=== PATIENT | female | born 1940 | race Caucasian/White ===

== ENCOUNTER 2022-06-22 19:44 | Inpatient (IN) | payer OTHER ==
[~2022-06-22] VITALS: Ht 157.5 cm; Wt 51.3 kg
[2022-06-22 19:44] VITALS: BP_SYST 111
[2022-06-22] MEDS ORDERED: NACL 0.9% 1,000 ML IV ONE (20:15)
[2022-06-22] MEDS ORDERED: ACETAMINOPHEN 650 MG SUPP.RECT RC ONE (20:30)
[2022-06-22 20:55] LABS: BASOPHILS % (AUTO) 0.2 % (0.0-2.0); EOSINOPHILS % (AUTO) 0.3 % (0.0-4.0); HEMATOCRIT 28.4 % (36-48); HEMOGLOBIN 9.2 g/dL (12.0-16.0); LYMPHOCYTES # (AUTO) 1.3 K/uL (1.0-5.5); LYMPHOCYTES % (AUTO) 9.1 % (20.5-51.5); MEAN CORPUSCULAR HEMOGLOBIN 25 pg (27-31); MEAN CORPUSCULAR HGB CONC 32 % (32-36); MEAN CORPUSCULAR VOLUME 79 fL (79.0-98.0); MONOCYTES # (AUTO) 0.7 K/uL (0.0-1.0); MONOCYTES % (AUTO) 4.8 % (1.7-9.3); NEUTROPHILS # (AUTO) 11.8 K/uL (1.8-7.7); NEUTROPHILS % (AUTO) 85.6 % (40.0-70.0); PLATELET COUNT (AUTO) 555 K/uL (130-430); RED BLOOD CELL COUNT(AUTO) 3.61 MIL/uL (4.2-6.2); RED CELL DISTRIBUTION WIDTH 16.8 % (9.0-15.0); WHITE BLOOD COUNT (AUTO) 13.7 K/uL (4.8-10.8)
[2022-06-22 21:00] LABS: ANION GAP 6 (5-15); CALCIUM 7.4 mg/dL (8.4-11.0); CHLORIDE 100 mmol/L (98-107); CREATININE 0.94 mg/dL (0.55-1.30); GLUCOSE 237 mg/dL (70-99); UREA NITROGEN, BLOOD 33 mg/dL (8-21)
[2022-06-22 21:06] LABS: ALANINE AMINOTRANSFERASE 50 U/L (12-78); ALBUMIN 1.4 g/dL (3.4-4.8); ASPARTATE AMINOTRANSFERASE 60 U/L (10-37); TOTAL BILIRUBIN 0.3 mg/dL (0.0-1.0)
[2022-06-22] MEDS ORDERED: NACL 0.9% 2,000 ML IV ONE (21:15)
[2022-06-22] MEDS ORDERED: PIPERACILLIN/TAZO 3.375 GM in NS 50 ML IV ONE (21:45)
[2022-06-22 22:04] LABS: BILIRUBIN,URINE NEGATIVE (NEGATIVE); BLOOD, URINE NEGATIVE (NEGATIVE); CLARITY/URINE CLEAR (CLEAR); COLOR,URINE YELLOW (YELLOW); GLUCOSE,URINE NEGATIVE (NEGATIVE); KETONES,URINE NEGATIVE (NEGATIVE); LEUKOCYTE ESTERASE ,URINE TRACE (NEGATIVE); NITRITE, URINE NEGATIVE (NEGATIVE); PROTEIN URINE TRACE (NEGATIVE); UROBILINOGEN,URINE 0.2 (0.2-1.0)
[2022-06-22 22:12] LABS: BACTERIA,URINE FEW /HPF (None Seen); MUCUS,URINE None Seen /LPF (None Seen); RBC,URINE NONE SEEN /HPF (0-3)
[2022-06-22] MEDS ORDERED: PIPERACILLIN/TAZOBACTAM 3.375 GM/VIAL (ZOSYN) IV ONE (23:35)
[2022-06-23] MEDS: D5/0.45 NS 1,000 ML IV SCH ×3 (03:15→12:45)
[2022-06-23] MEDS ORDERED: PIPERACILLIN/TAZO 3.375/DEX-IS 50 ML IV SCH (04:00)
[2022-06-23 04:15] VITALS: BP_SYST 99
[2022-06-23] MEDS ORDERED: PIPERACILLIN/TAZOBACTAM 3.375 GM/VIAL (ZOSYN) IV ONE (05:29)
[2022-06-23 09:30] VITALS: BP_SYST 103
[2022-06-23 11:33] VITALS: BP_SYST 92
[2022-06-23] MEDS ORDERED: DIATR MEGLU/DIATRIZ SOD 30 ML SOLUTION PO ONE (12:11)
[2022-06-23] MEDS ORDERED: ALBUMIN HUMAN 25% 200 ML IV ONE (14:00)
[2022-06-23] MEDS: PIPERACILLIN/TAZO 3.375/DEX-IS 50 ML IV SCH ×2 (14:09→21:41)
[2022-06-23 15:51] VITALS: BP_SYST 102
[2022-06-23 20:10] VITALS: BP_SYST 112
[2022-06-24 00:23] VITALS: BP_SYST 120
[2022-06-24] MEDS: D5/0.45 NS 1,000 ML IV SCH ×2 (03:16→08:45)
[2022-06-24 06:13] LABS: BASOPHILS % (AUTO) 0.3 % (0.0-2.0); EOSINOPHILS # (AUTO) 0.1 K/uL (0.0-0.4); EOSINOPHILS % (AUTO) 1.1 % (0.0-4.0); HEMATOCRIT 24.7 % (36-48); HEMOGLOBIN 7.8 g/dL (12.0-16.0); LYMPHOCYTES # (AUTO) 1.8 K/uL (1.0-5.5); LYMPHOCYTES % (AUTO) 13.6 % (20.5-51.5); MEAN CORPUSCULAR HEMOGLOBIN 25 pg (27-31); MEAN CORPUSCULAR HGB CONC 31 % (32-36); MEAN CORPUSCULAR VOLUME 81 fL (79.0-98.0); MONOCYTES # (AUTO) 0.7 K/uL (0.0-1.0); MONOCYTES % (AUTO) 5.7 % (1.7-9.3); NEUTROPHILS # (AUTO) 10.2 K/uL (1.8-7.7); NEUTROPHILS % (AUTO) 79.3 % (40.0-70.0); PLATELET COUNT (AUTO) 547 K/uL (130-430); RED BLOOD CELL COUNT(AUTO) 3.06 MIL/uL (4.2-6.2); RED CELL DISTRIBUTION WIDTH 16.8 % (9.0-15.0); WHITE BLOOD COUNT (AUTO) 12.9 K/uL (4.8-10.8)
[2022-06-24] MEDS: PIPERACILLIN/TAZO 3.375/DEX-IS 50 ML IV SCH ×3 (06:16→22:21)
[2022-06-24 06:52] LABS: ANION GAP 8 (5-15); CALCIUM 7.8 mg/dL (8.4-11.0); CHLORIDE 107 mmol/L (98-107); GLUCOSE 128 mg/dL (70-99); UREA NITROGEN, BLOOD 16 mg/dL (8-21)
[2022-06-24 08:00] VITALS: BP_SYST 114
[2022-06-24 11:31] VITALS: BP_SYST 124
[2022-06-24 15:35] VITALS: BP_SYST 128
[2022-06-24 16:02] LABS: BASOPHILS % (AUTO) 0.3 % (0.0-2.0); EOSINOPHILS # (AUTO) 0.1 K/uL (0.0-0.4); EOSINOPHILS % (AUTO) 0.5 % (0.0-4.0); HEMATOCRIT 23.9 % (36-48); HEMOGLOBIN 7.7 g/dL (12.0-16.0); LYMPHOCYTES # (AUTO) 2.2 K/uL (1.0-5.5); MEAN CORPUSCULAR HEMOGLOBIN 26 pg (27-31); MEAN CORPUSCULAR HGB CONC 32 % (32-36); MEAN CORPUSCULAR VOLUME 80 fL (79.0-98.0); MONOCYTES # (AUTO) 0.9 K/uL (0.0-1.0); MONOCYTES % (AUTO) 6.7 % (1.7-9.3); NEUTROPHILS # (AUTO) 10.4 K/uL (1.8-7.7); NEUTROPHILS % (AUTO) 76.5 % (40.0-70.0); PLATELET COUNT (AUTO) 559 K/uL (130-430); RED BLOOD CELL COUNT(AUTO) 2.99 MIL/uL (4.2-6.2); RED CELL DISTRIBUTION WIDTH 16.9 % (9.0-15.0); WHITE BLOOD COUNT (AUTO) 13.6 K/uL (4.8-10.8)
[2022-06-24 20:00] VITALS: BP_SYST 144
[2022-06-25 00:13] VITALS: BP_SYST 140
[2022-06-25] MEDS: D5/0.45 NS 1,000 ML IV SCH (03:07)
[2022-06-25] MEDS: PIPERACILLIN/TAZO 3.375/DEX-IS 50 ML IV SCH ×2 (05:29→15:04)
[2022-06-25 07:00] LABS: BASOPHILS % (AUTO) 0.2 % (0.0-2.0); EOSINOPHILS # (AUTO) 0.1 K/uL (0.0-0.4); EOSINOPHILS % (AUTO) 0.8 % (0.0-4.0); HEMATOCRIT 27.6 % (36-48); HEMOGLOBIN 8.8 g/dL (12.0-16.0); LYMPHOCYTES # (AUTO) 2.1 K/uL (1.0-5.5); MEAN CORPUSCULAR HEMOGLOBIN 26 pg (27-31); MEAN CORPUSCULAR HGB CONC 32 % (32-36); MEAN CORPUSCULAR VOLUME 80 fL (79.0-98.0); MONOCYTES # (AUTO) 0.7 K/uL (0.0-1.0); MONOCYTES % (AUTO) 5.4 % (1.7-9.3); NEUTROPHILS # (AUTO) 10.7 K/uL (1.8-7.7); NEUTROPHILS % (AUTO) 78.6 % (40.0-70.0); PLATELET COUNT (AUTO) 621 K/uL (130-430); RED BLOOD CELL COUNT(AUTO) 3.44 MIL/uL (4.2-6.2); RED CELL DISTRIBUTION WIDTH 16.6 % (9.0-15.0); WHITE BLOOD COUNT (AUTO) 13.7 K/uL (4.8-10.8)
[2022-06-25 07:15] LABS: ANION GAP 7 (5-15); CALCIUM 8.2 mg/dL (8.4-11.0); CHLORIDE 105 mmol/L (98-107); GLUCOSE 111 mg/dL (70-99); UREA NITROGEN, BLOOD 11 mg/dL (8-21)
[2022-06-25 08:00] VITALS: BP_SYST 126
[2022-06-25 08:25] LABS: INR 1.2 (0.8-1.2); PROTHROMBIN TIME 12.6 SECS (9.5-12.5)
[2022-06-25] MEDS: BALSAM PERU/CASTOR OIL 56.7 GM OINT...G. TP SCH (09:11)
[2022-06-25] MEDS ORDERED: POTASSIUM CHLORIDE 40 MEQ, LIDOCAINE JECT 2% PF 100 MG 50 MG in NS 250 ML IV ONE (09:15)
[2022-06-25 11:25] VITALS: BP_SYST 108
[2022-06-25] MEDS ORDERED: CARVEDILOL 3.125 MG TABLET (COREG) PO ONE (14:30)
[2022-06-25 15:26] VITALS: BP_SYST 107
[2022-06-25 20:10] VITALS: BP_SYST 123
[2022-06-25] MEDS: CARVEDILOL 3.125 MG TABLET (COREG) PO SCH (21:00)
[2022-06-26 01:19] VITALS: BP_SYST 145
[2022-06-26] MEDS: D5/0.45 NS 1,000 ML IV SCH ×3 (02:22→21:17)
[2022-06-26 05:20] LABS: BASOPHILS % (AUTO) 0.2 % (0.0-2.0); EOSINOPHILS % (AUTO) 0.2 % (0.0-4.0); HEMATOCRIT 29.8 % (36-48); HEMOGLOBIN 9.4 g/dL (12.0-16.0); LYMPHOCYTES # (AUTO) 2.4 K/uL (1.0-5.5); LYMPHOCYTES % (AUTO) 16.1 % (20.5-51.5); MEAN CORPUSCULAR HEMOGLOBIN 25 pg (27-31); MEAN CORPUSCULAR HGB CONC 32 % (32-36); MEAN CORPUSCULAR VOLUME 81 fL (79.0-98.0); MONOCYTES # (AUTO) 0.7 K/uL (0.0-1.0); MONOCYTES % (AUTO) 5.1 % (1.7-9.3); NEUTROPHILS # (AUTO) 11.6 K/uL (1.8-7.7); NEUTROPHILS % (AUTO) 78.4 % (40.0-70.0); PLATELET COUNT (AUTO) 691 K/uL (130-430); RED CELL DISTRIBUTION WIDTH 16.8 % (9.0-15.0); WHITE BLOOD COUNT (AUTO) 14.8 K/uL (4.8-10.8)
[2022-06-26 05:34] LABS: ANION GAP 11 (5-15); CALCIUM 7.5 mg/dL (8.4-11.0); CHLORIDE 103 mmol/L (98-107); CREATININE 0.61 mg/dL (0.55-1.30); GLUCOSE 131 mg/dL (70-99); UREA NITROGEN, BLOOD 9 mg/dL (8-21)
[2022-06-26] MEDS: PIPERACILLIN/TAZO 3.375/DEX-IS 50 ML IV SCH ×3 (05:51→21:16)
[2022-06-26] MEDS ORDERED: MAGNESIUM SULFATE 50 ML IV ONE (07:00)
[2022-06-26 07:53] VITALS: BP_SYST 126
[2022-06-26] MEDS ORDERED: POTASSIUM CHLORIDE 40 MEQ in NS 250 ML IV ONE (08:00)
[2022-06-26] MEDS: BALSAM PERU/CASTOR OIL 56.7 GM OINT...G. TP SCH (08:44)
[2022-06-26] MEDS: FLUCONAZOLE 200 mg/ NS 100 ML IV SCH (11:07)
[2022-06-26 11:33] VITALS: BP_SYST 130
[2022-06-26] MEDS: CARVEDILOL 3.125 MG TABLET (COREG) PO SCH ×2 (14:39→21:18)
[2022-06-26 15:39] VITALS: BP_SYST 143
[2022-06-27] VITALS (7 sets, daily range): BP systolic 118–151
[2022-06-27 05:34] LABS: BASOPHILS % (AUTO) 0.2 % (0.0-2.0); EOSINOPHILS # (AUTO) 0.3 K/uL (0.0-0.4); EOSINOPHILS % (AUTO) 2.2 % (0.0-4.0); HEMATOCRIT 27.3 % (36-48); HEMOGLOBIN 8.7 g/dL (12.0-16.0); LYMPHOCYTES # (AUTO) 1.8 K/uL (1.0-5.5); LYMPHOCYTES % (AUTO) 15.2 % (20.5-51.5); MEAN CORPUSCULAR HEMOGLOBIN 25 pg (27-31); MEAN CORPUSCULAR HGB CONC 32 % (32-36); MEAN CORPUSCULAR VOLUME 79 fL (79.0-98.0); MONOCYTES # (AUTO) 0.6 K/uL (0.0-1.0); MONOCYTES % (AUTO) 4.9 % (1.7-9.3); NEUTROPHILS # (AUTO) 9.2 K/uL (1.8-7.7); NEUTROPHILS % (AUTO) 77.5 % (40.0-70.0); PLATELET COUNT (AUTO) 656 K/uL (130-430); RED BLOOD CELL COUNT(AUTO) 3.44 MIL/uL (4.2-6.2); RED CELL DISTRIBUTION WIDTH 16.7 % (9.0-15.0); WHITE BLOOD COUNT (AUTO) 11.9 K/uL (4.8-10.8)
[2022-06-27 06:23] LABS: ANION GAP 9 (5-15); CALCIUM 7.3 mg/dL (8.4-11.0); CHLORIDE 104 mmol/L (98-107); CREATININE 0.55 mg/dL (0.55-1.30); GLUCOSE 133 mg/dL (70-99); UREA NITROGEN, BLOOD 7 mg/dL (8-21)
[2022-06-27] MEDS: PIPERACILLIN/TAZO 3.375/DEX-IS 50 ML IV SCH ×3 (06:31→21:59)
[2022-06-27] MEDS: D5/0.45 NS 1,000 ML IV SCH ×2 (06:31→16:45)
[2022-06-27] MEDS: CARVEDILOL 3.125 MG TABLET (COREG) PO SCH ×2 (09:00→21:57)
[2022-06-27] MEDS ORDERED: POTASSIUM CHLORIDE 40 MEQ in NS 250 ML IV ONE (11:00)
[2022-06-27] MEDS: FLUCONAZOLE 200 mg/ NS 100 ML IV SCH (11:31)
[2022-06-27] MEDS: BALSAM PERU/CASTOR OIL 56.7 GM OINT...G. TP SCH (11:31)
[2022-06-27] MEDS ORDERED: fentaNYL CITRATE/PF 100 MCG/2 ML AMP IVP PRN ×2 (15:45)
[2022-06-27] MEDS ORDERED: ONDANSETRON HCL 4 MG/2 ML VIAL IVP PRN (15:45)
[2022-06-27] MEDS ORDERED: METOCLOPRAMIDE HCL 10 MG/2 ML VIAL IVP PRN (15:45)
[2022-06-27] MEDS ORDERED: LR 1,000 ML IV.SOLN IV ONE (16:15)
[2022-06-27] MEDS ORDERED: BUPIVACAINE /PF 0.75% 10 ML VIAL INJ ONE (16:15)
[2022-06-27] MEDS ORDERED: NS IRRIG SOLN 1000 ML IR ONE (16:15)
[2022-06-27] MEDS ORDERED: HYDROcodone/ACETAMIN 5-325 MG TAB (NORCO/ VICODIN) PO PRN (19:00)
[2022-06-28] VITALS (7 sets, daily range): BP systolic 99–168
[2022-06-28] MEDS: D5/0.45 NS 1,000 ML IV SCH ×3 (02:01→22:45)
[2022-06-28] MEDS: PIPERACILLIN/TAZO 3.375/DEX-IS 50 ML IV SCH (06:46)
[2022-06-28 09:22] LABS: BASOPHILS # (AUTO) 0.1 K/uL (0.0-0.2); BASOPHILS % (AUTO) 0.4 % (0.0-2.0); EOSINOPHILS # (AUTO) 0.3 K/uL (0.0-0.4); EOSINOPHILS % (AUTO) 1.8 % (0.0-4.0); HEMATOCRIT 28.7 % (36-48); HEMOGLOBIN 9.1 g/dL (12.0-16.0); LYMPHOCYTES # (AUTO) 2.6 K/uL (1.0-5.5); LYMPHOCYTES % (AUTO) 17.6 % (20.5-51.5); MEAN CORPUSCULAR HEMOGLOBIN 25 pg (27-31); MEAN CORPUSCULAR HGB CONC 32 % (32-36); MEAN CORPUSCULAR VOLUME 80 fL (79.0-98.0); MONOCYTES # (AUTO) 0.7 K/uL (0.0-1.0); NEUTROPHILS % (AUTO) 75.2 % (40.0-70.0); PLATELET COUNT (AUTO) 663 K/uL (130-430); RED BLOOD CELL COUNT(AUTO) 3.58 MIL/uL (4.2-6.2); RED CELL DISTRIBUTION WIDTH 16.8 % (9.0-15.0); WHITE BLOOD COUNT (AUTO) 14.6 K/uL (4.8-10.8)
[2022-06-28] MEDS: CARVEDILOL 3.125 MG TABLET (COREG) PO SCH ×2 (09:24→21:41)
[2022-06-28] MEDS: BALSAM PERU/CASTOR OIL 56.7 GM OINT...G. TP SCH (09:28)
[2022-06-28 09:36] LABS: ANION GAP 8 (5-15); CALCIUM 7.5 mg/dL (8.4-11.0); CHLORIDE 101 mmol/L (98-107); CREATININE 0.53 mg/dL (0.55-1.30); GLUCOSE 113 mg/dL (70-99); UREA NITROGEN, BLOOD 7 mg/dL (8-21)
[2022-06-28] MEDS: FLUCONAZOLE 200 mg/ NS 100 ML IV SCH (10:08)
[2022-06-28] MEDS: AMPICILLIN SODIUM/SULBACTAM NA 1.5 GM in NS 50 ML IV SCH ×2 (15:25→17:13)
[2022-06-29] MEDS: AMPICILLIN SODIUM/SULBACTAM NA 1.5 GM in NS 50 ML IV SCH ×5 (00:09→23:58)
[2022-06-29 01:25] VITALS: BP_SYST 152
[2022-06-29 07:36] LABS: BASOPHILS # (AUTO) 0.1 K/uL (0.0-0.2); BASOPHILS % (AUTO) 0.4 % (0.0-2.0); EOSINOPHILS # (AUTO) 0.2 K/uL (0.0-0.4); EOSINOPHILS % (AUTO) 1.7 % (0.0-4.0); HEMATOCRIT 25.2 % (36-48); LYMPHOCYTES # (AUTO) 2.5 K/uL (1.0-5.5); LYMPHOCYTES % (AUTO) 19.4 % (20.5-51.5); MEAN CORPUSCULAR HEMOGLOBIN 25 pg (27-31); MEAN CORPUSCULAR HGB CONC 32 % (32-36); MEAN CORPUSCULAR VOLUME 79 fL (79.0-98.0); MONOCYTES # (AUTO) 0.7 K/uL (0.0-1.0); MONOCYTES % (AUTO) 5.4 % (1.7-9.3); NEUTROPHILS # (AUTO) 9.4 K/uL (1.8-7.7); NEUTROPHILS % (AUTO) 73.1 % (40.0-70.0); PLATELET COUNT (AUTO) 659 K/uL (130-430); RED BLOOD CELL COUNT(AUTO) 3.18 MIL/uL (4.2-6.2); RED CELL DISTRIBUTION WIDTH 16.4 % (9.0-15.0); WHITE BLOOD COUNT (AUTO) 12.9 K/uL (4.8-10.8)
[2022-06-29 07:40] VITALS: BP_SYST 125
[2022-06-29 07:42] LABS: ANION GAP 7 (5-15); C-REACTIVE PROTEIN QUANT 11.2 mg/dL (0-0.5); CALCIUM 7.3 mg/dL (8.4-11.0); CHLORIDE 102 mmol/L (98-107); CREATININE 0.47 mg/dL (0.55-1.30); GLUCOSE 107 mg/dL (70-99); UREA NITROGEN, BLOOD 6 mg/dL (8-21)
[2022-06-29] MEDS: D5/0.45 NS 1,000 ML IV SCH (08:18)
[2022-06-29] MEDS: CARVEDILOL 3.125 MG TABLET (COREG) PO SCH ×2 (08:19→20:31)
[2022-06-29] MEDS: BALSAM PERU/CASTOR OIL 56.7 GM OINT...G. TP SCH (08:20)
[2022-06-29 08:42] LABS: ERYTHROCYTE SEDIMENTATION RATE 38 MM/HR (0-20)
[2022-06-29] MEDS ORDERED: POTASSIUM CHLORIDE 20 MEQ TAB.PRT.SR PO ONE (11:45)
[2022-06-29] MEDS: FLUCONAZOLE 200 mg/ NS 100 ML IV SCH (12:17)
[2022-06-29 12:29] VITALS: BP_SYST 137
[2022-06-29] MEDS: NORMAL SALINE 5 ML DISP.SYRIN IVF SCH ×2 (13:17→23:58)
[2022-06-29 16:39] VITALS: BP_SYST 128
[2022-06-29 20:00] VITALS: BP_SYST 132
[2022-06-30] VITALS: BP_SYST 140
[2022-06-30] MEDS: NORMAL SALINE 5 ML DISP.SYRIN IVF SCH ×3 (06:04→21:30)
[2022-06-30] MEDS: AMPICILLIN SODIUM/SULBACTAM NA 1.5 GM in NS 50 ML IV SCH ×4 (06:04→23:38)
[2022-06-30 07:34] LABS: BASOPHILS % (AUTO) 0.4 % (0.0-2.0); EOSINOPHILS # (AUTO) 0.1 K/uL (0.0-0.4); EOSINOPHILS % (AUTO) 1.2 % (0.0-4.0); HEMATOCRIT 24.7 % (36-48); LYMPHOCYTES # (AUTO) 2.3 K/uL (1.0-5.5); MEAN CORPUSCULAR HEMOGLOBIN 26 pg (27-31); MEAN CORPUSCULAR HGB CONC 32 % (32-36); MEAN CORPUSCULAR VOLUME 80 fL (79.0-98.0); MONOCYTES # (AUTO) 0.7 K/uL (0.0-1.0); MONOCYTES % (AUTO) 6.2 % (1.7-9.3); NEUTROPHILS # (AUTO) 7.7 K/uL (1.8-7.7); NEUTROPHILS % (AUTO) 71.2 % (40.0-70.0); PLATELET COUNT (AUTO) 592 K/uL (130-430); RED BLOOD CELL COUNT(AUTO) 3.09 MIL/uL (4.2-6.2); RED CELL DISTRIBUTION WIDTH 17.1 % (9.0-15.0); WHITE BLOOD COUNT (AUTO) 10.8 K/uL (4.8-10.8)
[2022-06-30 07:45] LABS: ERYTHROCYTE SEDIMENTATION RATE 40 MM/HR (0-20)
[2022-06-30 08:05] LABS: ALANINE AMINOTRANSFERASE 14 U/L (12-78); ALBUMIN 1.6 g/dL (3.4-4.8); ANION GAP 7 (5-15); ASPARTATE AMINOTRANSFERASE 14 U/L (10-37); CALCIUM 7.4 mg/dL (8.4-11.0); CHLORIDE 103 mmol/L (98-107); GLUCOSE 95 mg/dL (70-99); TOTAL BILIRUBIN 0.3 mg/dL (0.0-1.0); UREA NITROGEN, BLOOD 8 mg/dL (8-21)
[2022-06-30] MEDS: CARVEDILOL 3.125 MG TABLET (COREG) PO SCH ×2 (08:51→21:29)
[2022-06-30] MEDS: BALSAM PERU/CASTOR OIL 56.7 GM OINT...G. TP SCH (08:52)
[2022-06-30] MEDS: FLUCONAZOLE 200 mg/ NS 100 ML IV SCH (11:26)
[2022-06-30 11:32] VITALS: BP_SYST 128
[2022-06-30 14:47] LABS: INR 1.1 (0.8-1.2); PROTHROMBIN TIME 11.5 SECS (9.5-12.5)
[2022-06-30 18:32] VITALS: BP_SYST 123
[2022-06-30 20:00] VITALS: BP_SYST 163
[2022-06-30] MEDS: ENOXAPARIN SODIUM 60 MG/0.6 ML SYRINGE SUBCUT SCH (21:29)
[2022-07-01] VITALS: BP_SYST 149
[2022-07-01] MEDS: AMPICILLIN SODIUM/SULBACTAM NA 1.5 GM in NS 50 ML IV SCH ×4 (05:25→23:27)
[2022-07-01] MEDS: NORMAL SALINE 5 ML DISP.SYRIN IVF SCH ×3 (05:26→21:32)
[2022-07-01 08:20] VITALS: BP_SYST 145
[2022-07-01] MEDS: CARVEDILOL 3.125 MG TABLET (COREG) PO SCH ×2 (09:20→21:32)
[2022-07-01] MEDS: ENOXAPARIN SODIUM 60 MG/0.6 ML SYRINGE SUBCUT SCH ×2 (09:20→21:32)
[2022-07-01] MEDS: BALSAM PERU/CASTOR OIL 56.7 GM OINT...G. TP SCH (09:23)
[2022-07-01] MEDS: FLUCONAZOLE 200 mg/ NS 100 ML IV SCH (10:22)
[2022-07-01 11:27] VITALS: BP_SYST 134
[2022-07-01] MEDS ORDERED: DIF100 PO (15:03)
[2022-07-01] MEDS ORDERED: [UNRECOGNIZED DRUG - CODE] INJ (15:05)
[2022-07-01 15:35] VITALS: BP_SYST 101
[2022-07-01 20:00] VITALS: BP_SYST 119
[2022-07-02 01:18] VITALS: BP_SYST 101
[2022-07-02] MEDS: AMPICILLIN SODIUM/SULBACTAM NA 1.5 GM in NS 50 ML IV SCH ×4 (05:32→23:25)
[2022-07-02] MEDS: NORMAL SALINE 5 ML DISP.SYRIN IVF SCH ×3 (05:32→23:25)
[2022-07-02 08:00] VITALS: BP_SYST 148
[2022-07-02] MEDS: ENOXAPARIN SODIUM 60 MG/0.6 ML SYRINGE SUBCUT SCH ×2 (10:12→21:54)
[2022-07-02] MEDS: CARVEDILOL 3.125 MG TABLET (COREG) PO SCH ×2 (10:12→21:55)
[2022-07-02] MEDS: FLUCONAZOLE 200 mg/ NS 100 ML IV SCH (10:14)
[2022-07-02] MEDS: BALSAM PERU/CASTOR OIL 56.7 GM OINT...G. TP SCH (10:15)
[2022-07-02 11:27] VITALS: BP_SYST 117
[2022-07-02 15:38] VITALS: BP_SYST 115
[2022-07-02 16:00] VITALS: BP_SYST 115
[2022-07-02 20:00] VITALS: BP_SYST 115
[2022-07-03 01:15] VITALS: BP_SYST 130
[2022-07-03 04:51] VITALS: BP_SYST 118
[2022-07-03] MEDS: AMPICILLIN SODIUM/SULBACTAM NA 1.5 GM in NS 50 ML IV SCH ×4 (05:40→23:48)
[2022-07-03] MEDS: NORMAL SALINE 5 ML DISP.SYRIN IVF SCH ×3 (05:41→20:56)
[2022-07-03 08:21] VITALS: BP_SYST 106
[2022-07-03] MEDS: ENOXAPARIN SODIUM 60 MG/0.6 ML SYRINGE SUBCUT SCH ×2 (09:26→20:55)
[2022-07-03] MEDS: CARVEDILOL 3.125 MG TABLET (COREG) PO SCH ×2 (09:27→20:55)
[2022-07-03] MEDS: BALSAM PERU/CASTOR OIL 56.7 GM OINT...G. TP SCH (09:28)
[2022-07-03 11:24] VITALS: BP_SYST 119
[2022-07-03] MEDS: FLUCONAZOLE 200 mg/ NS 100 ML IV SCH (11:31)
[2022-07-03 15:16] VITALS: BP_SYST 131
[2022-07-03 20:30] VITALS: BP_SYST 137
[2022-07-03] MEDS: metroNIDAZOLE 500 MG TABLET PO SCH (20:56)
[2022-07-04 00:55] VITALS: BP_SYST 108
[2022-07-04] MEDS: AMPICILLIN SODIUM/SULBACTAM NA 1.5 GM in NS 50 ML IV SCH ×4 (06:24→23:18)
[2022-07-04] MEDS: NORMAL SALINE 5 ML DISP.SYRIN IVF SCH ×3 (06:24→23:19)
[2022-07-04 08:06] VITALS: BP_SYST 135
[2022-07-04] MEDS: CARVEDILOL 3.125 MG TABLET (COREG) PO SCH ×2 (09:19→20:20)
[2022-07-04] MEDS: ENOXAPARIN SODIUM 60 MG/0.6 ML SYRINGE SUBCUT SCH ×2 (09:20→20:22)
[2022-07-04] MEDS: metroNIDAZOLE 500 MG TABLET PO SCH ×2 (09:20→20:20)
[2022-07-04] MEDS: BALSAM PERU/CASTOR OIL 56.7 GM OINT...G. TP SCH (09:20)
[2022-07-04] MEDS: FLUCONAZOLE 200 mg/ NS 100 ML IV SCH (10:31)
[2022-07-04 11:30] VITALS: BP_SYST 119
[2022-07-04 15:17] VITALS: BP_SYST 109
[2022-07-04 19:55] VITALS: BP_SYST 138
[2022-07-04] MEDS: QUEtiapine FUMARATE 25 MG TABLET PO SCH (20:22)
[2022-07-05 00:21] VITALS: BP_SYST 111
[2022-07-05] MEDS: AMPICILLIN SODIUM/SULBACTAM NA 1.5 GM in NS 50 ML IV SCH ×3 (05:14→17:20)
[2022-07-05] MEDS: NORMAL SALINE 5 ML DISP.SYRIN IVF SCH ×2 (05:15→11:56)
[2022-07-05 08:00] VITALS: BP_SYST 91
[2022-07-05] MEDS: metroNIDAZOLE 500 MG TABLET PO SCH ×2 (08:39→21:27)
[2022-07-05] MEDS: ENOXAPARIN SODIUM 60 MG/0.6 ML SYRINGE SUBCUT SCH ×2 (08:39→21:28)
[2022-07-05] MEDS: BALSAM PERU/CASTOR OIL 56.7 GM OINT...G. TP SCH (08:40)
[2022-07-05] MEDS: CARVEDILOL 3.125 MG TABLET (COREG) PO SCH ×2 (09:00→21:27)
[2022-07-05] MEDS: FLUCONAZOLE 200 mg/ NS 100 ML IV SCH (11:17)
[2022-07-05 11:45] VITALS: BP_SYST 121
[2022-07-05 16:31] VITALS: BP_SYST 99
[2022-07-05 20:00] VITALS: BP_SYST 115
[2022-07-05] MEDS: QUEtiapine FUMARATE 25 MG TABLET PO SCH (21:27)
[2022-07-06] MEDS: AMPICILLIN SODIUM/SULBACTAM NA 1.5 GM in NS 50 ML IV SCH ×4 (00:02→18:32)
[2022-07-06] MEDS: NORMAL SALINE 5 ML DISP.SYRIN IVF SCH ×4 (00:04→22:24)
[2022-07-06 00:59] VITALS: BP_SYST 129
[2022-07-06 06:56] LABS: BASOPHILS # (AUTO) 0.1 K/uL (0.0-0.2); BASOPHILS % (AUTO) 0.7 % (0.0-2.0); EOSINOPHILS % (AUTO) 0.6 % (0.0-4.0); HEMATOCRIT 22.9 % (36-48); HEMOGLOBIN 7.3 g/dL (12.0-16.0); LYMPHOCYTES % (AUTO) 26.2 % (20.5-51.5); MEAN CORPUSCULAR HEMOGLOBIN 25 pg (27-31); MEAN CORPUSCULAR HGB CONC 32 % (32-36); MEAN CORPUSCULAR VOLUME 80 fL (79.0-98.0); MONOCYTES # (AUTO) 0.6 K/uL (0.0-1.0); NEUTROPHILS # (AUTO) 4.8 K/uL (1.8-7.7); NEUTROPHILS % (AUTO) 64.5 % (40.0-70.0); PLATELET COUNT (AUTO) 534 K/uL (130-430); RED BLOOD CELL COUNT(AUTO) 2.87 MIL/uL (4.2-6.2); RED CELL DISTRIBUTION WIDTH 18.1 % (9.0-15.0); WHITE BLOOD COUNT (AUTO) 7.4 K/uL (4.8-10.8)
[2022-07-06 07:19] LABS: ANION GAP 7 (5-15); CALCIUM 7.5 mg/dL (8.4-11.0); CHLORIDE 104 mmol/L (98-107); GLUCOSE 113 mg/dL (70-99); UREA NITROGEN, BLOOD 11 mg/dL (8-21)
[2022-07-06 07:27] LABS: ERYTHROCYTE SEDIMENTATION RATE 55 MM/HR (0-20)
[2022-07-06 08:00] VITALS: BP_SYST 121
[2022-07-06] MEDS: CARVEDILOL 3.125 MG TABLET (COREG) PO SCH ×2 (08:39→20:54)
[2022-07-06] MEDS: ENOXAPARIN SODIUM 60 MG/0.6 ML SYRINGE SUBCUT SCH ×2 (08:40→20:55)
[2022-07-06] MEDS: metroNIDAZOLE 500 MG TABLET PO SCH ×2 (08:40→20:54)
[2022-07-06] MEDS: BALSAM PERU/CASTOR OIL 56.7 GM OINT...G. TP SCH (08:46)
[2022-07-06] MEDS ORDERED: POTASSIUM CHLORIDE 20 MEQ TAB.PRT.SR PO ONE (11:30)
[2022-07-06 11:39] VITALS: BP_SYST 124
[2022-07-06] MEDS: FLUCONAZOLE 200 mg/ NS 100 ML IV SCH (12:02)
[2022-07-06 16:00] VITALS: BP_SYST 117
[2022-07-06 20:00] VITALS: BP_SYST 139
[2022-07-06] MEDS: QUEtiapine FUMARATE 25 MG TABLET PO SCH (20:54)
[2022-07-07] MEDS: AMPICILLIN SODIUM/SULBACTAM NA 1.5 GM in NS 50 ML IV SCH ×4 (00:24→18:00)
[2022-07-07 00:56] VITALS: BP_SYST 124
[2022-07-07] MEDS: NORMAL SALINE 5 ML DISP.SYRIN IVF SCH ×3 (05:27→22:18)
[2022-07-07 06:06] LABS: BASOPHILS # (AUTO) 0.1 K/uL (0.0-0.2); BASOPHILS % (AUTO) 0.8 % (0.0-2.0); EOSINOPHILS # (AUTO) 0.1 K/uL (0.0-0.4); LYMPHOCYTES # (AUTO) 2.5 K/uL (1.0-5.5); LYMPHOCYTES % (AUTO) 32.5 % (20.5-51.5); MEAN CORPUSCULAR HEMOGLOBIN 25 pg (27-31); MEAN CORPUSCULAR HGB CONC 32 % (32-36); MEAN CORPUSCULAR VOLUME 80 fL (79.0-98.0); MONOCYTES # (AUTO) 0.7 K/uL (0.0-1.0); MONOCYTES % (AUTO) 8.5 % (1.7-9.3); NEUTROPHILS # (AUTO) 4.5 K/uL (1.8-7.7); NEUTROPHILS % (AUTO) 57.2 % (40.0-70.0); PLATELET COUNT (AUTO) 502 K/uL (130-430); RED BLOOD CELL COUNT(AUTO) 2.51 MIL/uL (4.2-6.2); WHITE BLOOD COUNT (AUTO) 7.8 K/uL (4.8-10.8)
[2022-07-07 06:36] LABS: ALANINE AMINOTRANSFERASE 10 U/L (12-78); ALBUMIN 1.4 g/dL (3.4-4.8); ANION GAP 7 (5-15); ASPARTATE AMINOTRANSFERASE 15 U/L (10-37); CALCIUM 7.2 mg/dL (8.4-11.0); CHLORIDE 105 mmol/L (98-107); CREATININE 0.49 mg/dL (0.55-1.30); GLUCOSE 125 mg/dL (70-99); TOTAL BILIRUBIN 0.2 mg/dL (0.0-1.0); UREA NITROGEN, BLOOD 17 mg/dL (8-21)
[2022-07-07 08:08] LABS: HEMOGLOBIN 6.3 g/dL (12.0-16.0)
[2022-07-07 08:10] VITALS: BP_SYST 103
[2022-07-07 08:15] LABS: ERYTHROCYTE SEDIMENTATION RATE 41 MM/HR (0-20)
[2022-07-07] MEDS: CARVEDILOL 3.125 MG TABLET (COREG) PO SCH ×2 (09:23→22:15)
[2022-07-07] MEDS: metroNIDAZOLE 500 MG TABLET PO SCH ×2 (09:23→22:15)
[2022-07-07] MEDS: BALSAM PERU/CASTOR OIL 56.7 GM OINT...G. TP SCH (09:24)
[2022-07-07] MEDS: ENOXAPARIN SODIUM 60 MG/0.6 ML SYRINGE SUBCUT SCH ×2 (09:29→22:14)
[2022-07-07] MEDS: FLUCONAZOLE 200 mg/ NS 100 ML IV SCH (10:32)
[2022-07-07 11:45] VITALS: BP_SYST 117
[2022-07-07 15:30] VITALS: BP_SYST 110
[2022-07-07 20:00] VITALS: BP_SYST 130
[2022-07-07] MEDS: QUEtiapine FUMARATE 25 MG TABLET PO SCH (22:15)
[2022-07-08 00:48] VITALS: BP_SYST 136
[2022-07-08] MEDS: NORMAL SALINE 5 ML DISP.SYRIN IVF SCH ×2 (06:32→13:31)
[2022-07-08] MEDS: AMPICILLIN SODIUM/SULBACTAM NA 1.5 GM in NS 50 ML IV SCH ×5 (06:32→19:19)
[2022-07-08 08:47] VITALS: BP_SYST 134
[2022-07-08] MEDS: metroNIDAZOLE 500 MG TABLET PO SCH (09:39)
[2022-07-08] MEDS: ENOXAPARIN SODIUM 60 MG/0.6 ML SYRINGE SUBCUT SCH (09:39)
[2022-07-08] MEDS: CARVEDILOL 3.125 MG TABLET (COREG) PO SCH (09:40)
[2022-07-08] MEDS: BALSAM PERU/CASTOR OIL 56.7 GM OINT...G. TP SCH (09:40)
[2022-07-08 11:25] VITALS: BP_SYST 142
[2022-07-08] MEDS: FLUCONAZOLE 200 mg/ NS 100 ML IV SCH (12:29)
[2022-07-08 15:09] VITALS: BP_SYST 110
[2022-07-08 16:34] LABS: BASOPHILS # (AUTO) 0.1 K/uL (0.0-0.2); BASOPHILS % (AUTO) 0.9 % (0.0-2.0); EOSINOPHILS # (AUTO) 0.1 K/uL (0.0-0.4); EOSINOPHILS % (AUTO) 1.3 % (0.0-4.0); HEMOGLOBIN 10.2 g/dL (12.0-16.0); LYMPHOCYTES # (AUTO) 1.9 K/uL (1.0-5.5); LYMPHOCYTES % (AUTO) 23.7 % (20.5-51.5); MEAN CORPUSCULAR HEMOGLOBIN 26 pg (27-31); MEAN CORPUSCULAR HGB CONC 33 % (32-36); MEAN CORPUSCULAR VOLUME 79 fL (79.0-98.0); MONOCYTES # (AUTO) 0.6 K/uL (0.0-1.0); MONOCYTES % (AUTO) 7.4 % (1.7-9.3); NEUTROPHILS # (AUTO) 5.2 K/uL (1.8-7.7); NEUTROPHILS % (AUTO) 66.7 % (40.0-70.0); PLATELET COUNT (AUTO) 471 K/uL (130-430); RED BLOOD CELL COUNT(AUTO) 3.94 MIL/uL (4.2-6.2); RED CELL DISTRIBUTION WIDTH 17.6 % (9.0-15.0); WHITE BLOOD COUNT (AUTO) 7.8 K/uL (4.8-10.8)
[2022-07-08 18:40] VITALS: BP_SYST 110
[2022-07-08 19:11] VITALS: BP_SYST 110
== END 2022-07-08 20:10 | DRG 853 ==
LOC: SED 19:44 → STU 06-23 02:39 → SMU 06-24 12:02
PROVIDERS: ADMIT Specialist; ATTEND Specialist
PROC: 0JBL0ZZ Excision of Right Upper Leg Subcutaneous Tissue and Fascia, Open Approach (ICD-10-PCS; 2022-06-27)
PROC: 0JB70ZZ Excision of Back Subcutaneous Tissue and Fascia, Open Approach (ICD-10-PCS; 2022-06-27)
PROC: 0JBM0ZZ Excision of Left Upper Leg Subcutaneous Tissue and Fascia, Open Approach (ICD-10-PCS; principal; 2022-06-27 15:05)
PROC: 30233N1 Transfusion of Nonautologous Red Blood Cells into Peripheral Vein, Percutaneous Approach (ICD-10-PCS; 2022-07-07)
PROC: 05HY33Z Insertion of Infusion Device into Upper Vein, Percutaneous Approach (ICD-10-PCS; 2022-07-07)
DX: A41.9 Sepsis, unspecified organism (principal); J69.0 Pneumonitis due to inhalation of food and vomit; L89.324 Pressure ulcer of left buttock, stage 4; L89.314 Pressure ulcer of right buttock, stage 4; L89.154 Pressure ulcer of sacral region, stage 4; N39.0 Urinary tract infection, site not specified; I96 Gangrene, not elsewhere classified; E87.1 Hypo-osmolality and hyponatremia; G93.40 Encephalopathy, unspecified; Z66 Do not resuscitate; Z20.822 Contact with and (suspected) exposure to COVID-19; B96.1 Klebsiella pneumoniae [K. pneumoniae] as the cause of diseases classified elsewhere; B96.20 Unspecified Escherichia coli [E. coli] as the cause of diseases classified elsewhere; D64.9 Anemia, unspecified; D75.839 Thrombocytosis, unspecified; E83.51 Hypocalcemia; E87.6 Hypokalemia; R73.9 Hyperglycemia, unspecified; R63.0 Anorexia; Z68.20 Body mass index [BMI] 20.0-20.9, adult; F03.90 Unspecified dementia, unspecified severity, without behavioral disturbance, psychotic disturbance, mood disturbance, and anxiety; I11.9 Hypertensive heart disease without heart failure; I25.10 Atherosclerotic heart disease of native coronary artery without angina pectoris; R13.10 Dysphagia, unspecified; Z79.01 Long term (current) use of anticoagulants; Z95.1 Presence of aortocoronary bypass graft
CPT/HCPCS: 36415; 71045; 80048; 80053; 81000; 83605; 83880; 84132; 84484; 85025; 85610-TC; 85651-TC; 85730-TC; 86140; 86886; 86900; 86901; 86920; 87040; 87070-TC; 87075-TC; 87081; 87086; 87186-TC; 87205-TC; 88304; 93005; 93306; 96361; 96365; 97110-GP; 97530-GP; 99285; C1751; G0378; J0295; J1450; J1650; J2543; J3475; J3480; J3490; J7050; J7060; J7120; P9021; Q9964